=== PATIENT | male | born 1935 | race Caucasian/White ===

== ENCOUNTER 2021-09-16 06:28 | Emergency (ER) | payer MEDICARE ==
[~2021-09-16] VITALS: Ht 172.7 cm; Wt 85.5 kg
[2021-09-16 06:55] VITALS: BP 182/92; TEMP 98
[2021-09-16] MEDS ORDERED: FLEXERIL 1010 MG/TAB PO (07:38)
[2021-09-16] MEDS ORDERED: MEDROL 4MG DOSPA4 MG PO (07:38)
[2021-09-16 07:49] VITALS: PULSE 77
== END 2021-09-16 07:49 | disposition home or self-care (01) ==
LOC: COL.ER 06:28
DX: M54.16 Radiculopathy, lumbar region (principal); Z87.891 Personal history of nicotine dependence